=== PATIENT | female | born 1990 | race Caucasian/White ===

== ENCOUNTER 2017-02-19 08:16 | Emergency (ER) | payer SELFPAY ==
[~2017-02-19] VITALS: Wt 89.0 kg
[~2017-02-19 08:16] MED LIST: HYDR-3498 PO; IBUP-1542 PO
== END 2017-02-19 13:16 | disposition left against medical advice (07) ==
LOC: FTE 08:16
DX: Z53.21 Procedure and treatment not carried out due to patient leaving prior to being seen by health care provider (principal)